=== PATIENT | female | born 1945 | race Caucasian/White ===

== ENCOUNTER 2019-02-28 12:59 | Emergency (ER) | payer MEDICARE ==
[~2019-02-28] VITALS: Ht 162.6 cm; Wt 84.8 kg
[~2019-02-28 12:59] MED LIST: TRIAMTERENE/HC1 EACH PO; Z ALTACE PO; Z.0.VERAPAMIL ER240 PO
--- OUTSIDE RECORDS SUMMARY | 2019-02-28 13:01 | XMS REPORT | Clinical Summary ---
Author Author [place] [facility] Organization [facility] Address Unknown Phone Unavailable Care Team Providers Care Product Marketing Executive Name Role Phone Stephon Tang MD PCP Unavailable Allergies Comments Active Allergy Reactions Severity Noted Date Skin irritation Adhesive Other (See 11/09/2018 Comments) Childhood reaction Sulfa (Sulfonamide Other (See 03/02/2015 Antibiotics) Comments) Medications End Date Status Medication Sig Dispensed Refills Start Date Active b complex vitamins tablet Take 1 tablet 0 by mouth daily. Active calcium carbonate-vitamin Take 1 tablet 0 D3 (OSCAL-D) 500 by mouth 2 mg(1,250mg) -200 unit per (two) times tablet daily with breakfast and dinner. Active glucosamine-chondroitin Take 1 tablet 0 500-400 mg tablet by mouth 3 (three) times daily. Active methylsulfonylmethane Take by 0 (MSM) 1,000 mg Cap mouth. Active multivitamin per tablet Take 1 tablet 0 by mouth daily. Active TiZANidine (ZANAFLEX) 4 Take 4 mg by 0 MG capsule mouth 3 (three) times daily as needed . Active verapamil (VERELAN PM) Take 240 mg 0 240 MG 24 hr capsule by mouth 2 (two) times daily . Active hydroCHLOROthiazide Take 25 mg by 0 (HYDRODIURIL) 25 MG mouth daily. tablet Active rOPINIRole (REQUIP) 0.25 Take 0.25 mg 0 MG tablet by mouth daily. Active ramipril (ALTACE) 5 MG Take 5 mg by 0 capsule mouth daily. 11/09/2018 Discontinued traMADol (ULTRAM) 50 mg Take 50 mg by 0 tablet mouth every 6 (six) hours as needed for Pain. 11/09/2018 Discontinued losartan-hydrochlorothiaz Take 1 tablet 0 maxi (HYZAAR) 50-12.5 mg by mouth per tablet daily. 11/19/2018 Discontinued HYDROcodone-acetaminophen Take 1 tablet 0 (NORCO 5-325) 5-325 mg by mouth per tablet every 6 (six) hours as needed for Pain. 12/04/2018 HYDROcodone-acetaminophen Take 1 tablet 60 tablet 0 (NORCO 10-325) 10-325 mg by mouth 9 per tablet every 4 (four) hours as needed for Pain for up to 15 days. Max Daily Amount: 6 tablets 12/04/2018 aspirin 325 MG EC tablet Take 1 tablet 14 tablet 0 (325 mg 9 total) by mouth daily for 14 days. Active Problems Problem Noted Date Primary osteoarthritis of right knee 11/18/2018 Status post right knee replacement 11/18/2018 Dermatochalasis 01/31/2016 Brow ptosis 01/31/2016 Encounters Care Team Description Date Type Specialty 11/19/2018 Travel Kamryn Diallo MD ARTHROPLASTY,KNEE UNILATERAL 11/18/2018 Surgery Girma Chin MD 11/18/2018 Anesthesia Event Kamryn Diallo MD 11/18/2018 [facility] General Internal Medicine - Encounter 11/20/2018 Resource, Omt Preadmit Phone 11/09/2018 Hospital Pre-Admission Testing Encounter after 02/27/2018 Social History Date Tobacco Use Types Packs/Day Years Used Never Smoker Smokeless Tobacco: Never Used Alcohol Use Drinks/Week oz/Week Comments No Sex Assigned at Date Recorded Not on file Industry Job Start Date Occupation Not on file Not on file Not on file Travel End Travel History Travel Start 11/01/2018 Spring 10/22/2018 Last Filed Vital Signs Time Taken Vital Sign Reading 11/20/2018 11:00 AM CONTRACTS ADMINISTRATOR Blood Pressure 106/57 11/20/2018 11:00 AM CONTRACTS ADMINISTRATOR Pulse 74 11/20/2018 11:00 AM CONTRACTS ADMINISTRATOR Temperature 36.6 C (97.8 F) 11/20/2018 11:00 AM CONTRACTS ADMINISTRATOR Respiratory Rate 17 11/20/2018 11:00 AM CONTRACTS ADMINISTRATOR Oxygen Saturation 98% - Inhaled Oxygen - Concentration 11/18/2018 7:54 AM CONTRACTS ADMINISTRATOR Weight 95.8 kg (211 lb 3.2 oz) 11/18/2018 7:54 AM CONTRACTS ADMINISTRATOR Height 162.6 cm (5' 4") 11/18/2018 7:54 AM CONTRACTS ADMINISTRATOR Body Mass Index 36.25 Plan of Treatment Not on file Implants Device Identifier Shelf Expiration Date Model / Serial / Lot Implanted Type Area Manufactur er 01/18/2021 6191-1-001 / / [id number] Cement Bone [employer]urg Smplx P Full Cement/Fredrick Right: Knee JANIE:ST 6191-1-001 - [id number] ler/Adhesi CALDERON Implanted: Qty: 2 on 11/18/2018 by Kamryn Forbes MD 12/03/2027 [id number] / / [id number] Comp Fem Cr Intlok Vangrd 60 R Joints Right: Knee BIOMET [id number] - [id number] Implanted: Qty: 1 on 11/18/2018 by Kamryn Diallo MD 07/26/2028 [id number] / / [id number] Ty Tib Fin Biomet 71mm [id number] - Joints Right: Knee BIOMET [id number] Implanted: Qty: 1 on 11/18/2018 by Kamryn Diallo MD 10/08/2023 [id number] / / [id number] Patella Symm [id number] - Joints Right: Knee BIOMET [id number] Implanted: Qty: 1 on 11/18/2018 by Kamryn Diallo MD 09/23/2023 [id number] / / [id number] Bear Van Std [id number] - Joints Right: Knee BIOMET [id number] Implanted: Qty: 1 on 11/18/2018 by Kamryn Diallo MD Procedures Comments Procedure Name Priority Date/Time Associated Diagnosis HEMOGLOBIN AND HEMATOCRIT Routine 11/20/2018 5:21 AM CONTRACTS ADMINISTRATOR BASIC METABOLIC PANEL (7) Routine 11/20/2018 5:21 AM CONTRACTS ADMINISTRATOR TRANSFUSION SERVICE 11/19/2018 REPORT - SCAN 6:01 PM CONTRACTS ADMINISTRATOR HEMOGLOBIN AND HEMATOCRIT Routine 11/19/2018 3:22 AM CONTRACTS ADMINISTRATOR BASIC METABOLIC PANEL (7) Routine 11/19/2018 3:22 AM CONTRACTS ADMINISTRATOR ARTHROPLASTY,KNEE 11/18/2018 Primary osteoarthritis of UNILATERAL 9:31 AM CONTRACTS ADMINISTRATOR right knee Special Needs (BIOMET, SPINAL/EPI DURAL WITH ADDUCTOR CANAL BLOCK) TISSUE EXAM AP Routine 11/18/2018 9:16 AM CONTRACTS ADMINISTRATOR MA AN PERINEURAL CATH - Routine 11/18/2018 NO CHARGE 8:25 AM CONTRACTS ADMINISTRATOR ANESTHESIA SPINAL BLOCK Routine 11/18/2018 8:23 AM CONTRACTS ADMINISTRATOR TYPE AND SCREEN, Routine 11/18/2018 AUTOMATED 7:48 AM CONTRACTS ADMINISTRATOR after 02/27/2018 Results * Hemoglobin and hematocrit (11/20/2018 5:21 AM CONTRACTS ADMINISTRATOR) Only the most recent of 2 results within the time period is included. Hemoglobin 11.3 11.2 - 15.7 GM/DL [facility] Hematocrit 35.8 34.1 - 44.9 % [facility] Specimen Blood Performing Organization Address City/[facility]/Zipcode Phone Number [facility] [address] [place] [address] [place] * Basic metabolic panel (11/20/2018 5:21 AM CONTRACTS ADMINISTRATOR) Only the most recent of 2 results within the time period is included. Sodium 138 136 - 145 meq/L [facility] Potassium 3.5 3.5 - 5.1 meq/L [facility] Chloride 107 98 - 107 meq/L [facility] CO2 25 22 - 29 meq/L [facility] BUN 21 7 - 21 mg/dL [facility] Creatinine 0.80 0.57 - 1.25 mg/dL [facility] Glucose 103 70 - 105 mg/dL [facility] Calcium 8.3 (L) 8.4 - 10.2 mg/dL [facility] EGFR 70Comment: ESTIMATED GFR IS mL/min/1.73 sq m [facility] NOT ACCURATE CREATININE [facility] CLEARANCE IN PREDICTING GLOMERULAR FILTRATION RATE. ESTIMATED GFR IS NOT APPLICABLE FOR DIALYSIS PATIENTS. Specimen Blood Performing Organization Address City/[facility]/Zipcode Phone Number [facility] [address] [place] [address] [facility] * TRANSFUSION SERVICE REPORT - SCAN (11/19/2018 6:01 PM CONTRACTS ADMINISTRATOR) Narrative Performed At * Tissue Exam (11/18/2018 9:16 AM CONTRACTS ADMINISTRATOR) Case Report Surgical Pathology [facility] Report [facility] Case: [id number] Authorizing Provider:Kamryn Diallo, Collected: 11/18/2018 0916 Ordering Location: [facility] PERIOPERAT[facility] Received: 11/18/2018 1029 SERVICES Pathologist: Carlee Harris MD Specimen:Condyle,Right Knee DIAGNOSIS RIGHT KNEE BONE, EXCISION: [facility] - PRIMARY [facility] OSTEOARTHRITIS/DEGENERATIVE JOINT DISEASE - OSTEOPOROSIS - REACTIVE SYNOVIUM - OSTEOCARTILAGINOUS LOOSE BODY, 6 MM MO/pl Signing Pathologist Direct Phone Line: [phone] CPT Code(s) 52921; 86079 [facility] CLINICAL HISTORY Primary osteoarthritis right [facility] knee [facility] SPECIMEN SOURCE Right knee condyle [facility] GROSS DESCRIPTION The specimen is received in a [facility] fluidless container labeled [facility] with patient information and labeled "right knee condyle" and consists of multiple fragments of leyva knee bone and soft tissue measuring 7 x 6 x 2.5 cm in aggregate. Section code: A1 and A2, bone submitted for decalcification; A3, soft tissue and bone submitted for decalcification. CG/pl MICROSCOPIC DESCRIPTION The right sample shows [facility] eburnated bone and adjacent [facility] degenerated cartilage with chondrocyte clones and fibrillation. Osteophytes are present. The marrow is focally hematopoietic and the bone, osteoporotic. There is reactive synovium and an osteocartilaginous loose body, up to 5 mm, present in the synovial elements. Atypia or inflammation is not noted in any of the sections studied. Specimen Tissue - Condyle,Right Knee Performing Organization Address City/[facility]/Zipcode Phone Number [facility] [address] [place] [address] [facility] * ANESTHESIA PERIPHERAL BLOCK (11/18/2018 8:25 AM CONTRACTS ADMINISTRATOR) Narrative Performed At Girma Chin MD 11/18/20188:26 AM Peripheral Block Patient location during procedure: pre-procedure Start time: 11/18/2018 8:21 AM End time: 11/18/2018 8:26 AM Procedure Indication: procedure for pain, at surgeon's request and post-op pain management Preanesthetic Checklist Completed: patient identified, pre-op evaluation, timeout performed, IV checked, risks and benefits discussed, monitors and equipment checked, anesthesia consent given, prep site dry prior to draping and maximum sterile barriers were used: cap, mask, sterile gown, sterile gloves, and large sterile sheet Staffing Anesthesiologist: Girma Chin MD Performed: personally Prep Prep: chlorhexidine Procedures: sterile gloves, surgical mask, surgical hat, sterile technique and prep and sterile drape applied Peripheral Nerve Block Patient position: supine Patient monitoring: EKG, HR, BP and SpO2 Laterality: right Block type: adductor canal Injection technique: catheter ultrasound guided - in plane, prescan was completed prior to procedure and needle tip was visualized throughout the entire procedure ultrasound image saved Block Dose: ropivicaine and catheter Infiltration strength: 0.5 % Dose: 25 mL Needle Needle type: pajunk. Needle gauge: 18 G Needle length: 75mm. Needle Localization:anatomical landmarks and US guided Catheter type: open end Catheter size: 20 G Hydrodissection? yesCatheter tunneled Dressing: Occlusive dressing applied in sterile fashion and Dermabond applied at the catheter insertion site Assessment Injection assessment: incremental injection and negative aspiration for heme LOC: Sedated with meaningful contact supplemental oxygen used.no evidence of intravascular injection and no heart rate changeno paresthesia patient had no immediate complications and patient tolerated the procedure well Additional Notes Patient tolerated well.No pain on injection or throughout procedure. Procedure Note Girma Chin MD - 11/18/2018 8:25 AM CONTRACTS ADMINISTRATOR Peripheral Block Patient location during procedure: pre-procedure Start time: 11/18/2018 8:21 AM End time: 11/18/2018 8:26 AM Procedure Indication: procedure for pain, at surgeon's request and post-op pain management Preanesthetic Checklist Completed: patient identified, pre-op evaluation, timeout performed, IV checked, risks and benefits discussed, monitors and equipment checked, anesthesia consent given, prep site dry prior to draping and maximum sterile barriers were used: cap, mask, sterile gown, sterile gloves, and large sterile sheet Staffing Anesthesiologist: Girma Chin MD Performed: personally Prep Prep: chlorhexidine Procedures: sterile gloves, surgical mask, surgical hat, sterile technique and prep and sterile drape applied Peripheral Nerve Block Patient position: supine Patient monitoring: EKG, HR, BP and SpO2 Laterality: right Block type: adductor canal Injection technique: catheter ultrasound guided - in plane, prescan was completed prior to procedure and needle tip was visualized throughout the entire procedure ultrasound image saved Block Dose: ropivicaine and catheter Infiltration strength: 0.5 % Dose: 25 mL Needle Needle type: pajunk. Needle gauge: 18 G Needle length: 75mm. Needle Localization: anatomical landmarks and US guided Catheter type: open end Catheter size: 20 G Hydrodissection? yesCatheter tunneled Dressing: Occlusive dressing applied in sterile fashion and Dermabond applied at the catheter insertion site Assessment Injection assessment: incremental injection and negative aspiration for heme LOC: Sedated with meaningful contact supplemental oxygen used.no evidence of intravascular injection and no heart rate changeno paresthesia patient had no immediate complications and patient tolerated the procedure well Additional Notes Patient tolerated well. No pain on injection or throughout procedure. * ANESTHESIA SPINAL BLOCK (11/18/2018 8:23 AM CONTRACTS ADMINISTRATOR) Narrative Performed At Girma Chin MD 11/18/20188:24 AM Spinal Block Patient location during procedure: pre-procedure Start time: 11/18/2018 8:17 AM End time: 11/18/2018 8:20 AM Procedure Indication: at surgeon's request and primary anesthetic Staffing Anesthesiologist: Girma Chin MD Performed: personally Preanesthetic Checklist Completed: patient identified, pre-op evaluation, timeout performed, IV checked, risks and benefits discussed, monitors and equipment checked, anesthesia consent given, prep site dry prior to draping and maximum sterile barriers were used: cap, mask, sterile gown, sterile gloves, and large sterile sheet Prep Prep: chlorhexidine Procedures: sterile gloves, surgical mask, surgical hat, sterile technique and prep and sterile drape applied Spinal Block Patient position: sitting Patient monitoring: EKG, HR, BP and SpO2 Approach: midlineNo pictures available Level:L3-4 Injection technique: single-shot landmark technique and landmark technique Needle Needle type: cori. Needle gauge: 25 G Assessment Sensory level: T10 Events: cerebrospinal fluid patient tolerated the procedure well and patient had no immediate complications Additional Notes Patient tolerated well.No pain on injection or throughout procedure. Procedure Note Girma Chin MD - 11/18/2018 8:23 AM CONTRACTS ADMINISTRATOR Spinal Block Patient location during procedure: pre-procedure Start time: 11/18/2018 8:17 AM End time: 11/18/2018 8:20 AM Procedure Indication: at surgeon's request and primary anesthetic Staffing Anesthesiologist: Girma Chin MD Performed: personally Preanesthetic Checklist Completed: patient identified, pre-op evaluation, timeout performed, IV checked, risks and benefits discussed, monitors and equipment checked, anesthesia consent given, prep site dry prior to draping and maximum sterile barriers were used: cap, mask, sterile gown, sterile gloves, and large sterile sheet Prep Prep: chlorhexidine Procedures: sterile gloves, surgical mask, surgical hat, sterile technique and prep and sterile drape applied Spinal Block Patient position: sitting Patient monitoring: EKG, HR, BP and SpO2 Approach: midlineNo pictures available Level: L3-4 Injection technique: single-shot landmark technique and landmark technique Needle Needle type: cori. Needle gauge: 25 G Assessment Sensory level: T10 Events: cerebrospinal fluid patient tolerated the procedure well and patient had no immediate complications Additional Notes Patient tolerated well. No pain on injection or throughout procedure. * Type and screen, automated (11/18/2018 7:48 AM CONTRACTS ADMINISTRATOR) ABO/RH AUTOMATED (BEAKER) O POSITIVE [facility] Ab Scrn NEGATIVE [facility] Specimen Blood Performing Organization Address City/State/Zipcode Phone Number [facility] [address] [place] [address] [place] after 02/27/2018 Insurance Payer Benefit Subscriber ID Type Phone Address Plan / Group [facility] xxxxxxxxxxx MEDICARE ADV Advance Directives Patient has advance care planning documents, and code status on file. For more i nformation, please contact: [address] [address] Date Inactivated Comments Code Status Date Activated 11/20/2018 5:31 PM Full Code 11/18/2018 7:37 AM This code status was determined by: Patient 01/31/2016 11:50 PM Full Code 01/31/2016 10:08 AM This code status was determined by: Patient
--- OUTSIDE RECORDS SUMMARY | 2019-02-28 13:01 | XMS REPORT ---
Author Author [facility] Address Unknown Phone Unavailable Care Team Providers Care Slat Grader Name Role Phone SHANELLE MUNGUIA Unavailable Unavailable Problems This patient has no known problems. Allergies, Adverse Reactions, Alerts This patient has no known allergies or adverse reactions. Medications This patient has no known medications. Results Test Description Test Time Test Comments Text Results Atomic Results Result Comments TISSUE EXAM 2018-11-23 15:23:00 Surgical Pathology Report Case: [id number] Authorizing Provider: Kamryn Munguia, Collected: 11/18/2018 0916 Ordering Location: [facility] PERIOPERATIVE Received: 11/18/2018 1029 SERVICES Pathologist: Carlee Harris MD Specimen: Ramakrishna mara,Right Knee RIGHT KNEE BONE, EXCISION: - PRIMARY OSTEOARTHRITIS/DEGENERATIVE JOINT DISEASE - OSTEOPOROSIS - REACTIVE SYNOVIUM - OSTEOCARTILAGINOUS LOOSE BODY, 6 MMMO/pl Signing Pathologist Direct Phone Line: [phone] signed by Carlee Harris MD on 11/23/2018 at 3:23 [id number]; [id number] osteoarthritis right kneeRight knee condyleThe specimen is received in a fluidless container labeled with patient information and labeled "right knee condyle" and consists of multiple fragments of leyva knee bone and soft tissue measuring 7 x 6 x 2.5 cm in aggregate. Section code: A1 and A2, bone submitted for decalcification; A3, soft tissue and bone submitted for decalcification. CG/pl The right sample shows eburnated bone and adjacent degenerated cartilage with chondrocyte clones and fibrillation. Osteophytes are present. The marrow is focally hematopoietic and the bone, osteoporotic. There is reactive synovium and an osteocartilaginous loose body, up to 5 mm, present in the synovial elements. Atypia or inflammation is not noted in any of the sections studied. BASIC METABOLIC PANEL 2018-11-20 06:51:00 SODIUM (BEAKER) (test mwcj=820) 138 meq/L 136-145 POTASSIUM (BEAKER) (test dpim=537) 3.5 meq/L 3.5-5.1 CHLORIDE (BEAKER) (test fxiv=815) 107 meq/L 98-107 CO2 (BEAKER) (test yeye=745) 25 meq/L 22-29 BLOOD UREA NITROGEN (BEAKER) (test lsrf=883) 21 mg/dL 7-21 CREATININE (BEAKER) (test ktyx=381) 0.80 mg/dL 0.57-1.25 GLUCOSE RANDOM (BEAKER) (test jzts=317) 103 mg/dL 70-105 CALCIUM (BEAKER) (test uwpc=357) 8.3 mg/dL 8.4-10.2 EGFR (BEAKER) (test olxu=4430) 70 mL/min/1.73 sq m ESTIMATED GFR IS NOT ACCURATE CREATININE CLEARANCE IN PREDICTING GLOMERULAR FILTRATION RATE. ESTIMATED GFR IS NOT APPLICABLE FOR DIALYSIS PATIENTS. HEMOGLOBIN AND [id number] 05:42:00* Test Item Value Reference Range Comments HEMOGLOBIN (BEAKER) (test brqd=276) 11.3 GM/DL 11.2-15.7 HEMATOCRIT (BEAKER) (test ufeo=051) 35.8 % 34.1-44.9 BASIC METABOLIC [id number] 06:31:00* Test Item Value Reference Range Comments SODIUM (BEAKER) (test yadr=640) 137 meq/L 136-145 POTASSIUM (BEAKER) (test slru=963) 3.3 meq/L 3.5-5.1 CHLORIDE (BEAKER) (test edzt=302) 105 meq/L 98-107 CO2 (BEAKER) (test bvjs=489) 25 meq/L 22-29 BLOOD UREA NITROGEN (BEAKER) (test yrzz=067) 16 mg/dL 7-21 CREATININE (BEAKER) (test rbqt=270) 0.73 mg/dL 0.57-1.25 GLUCOSE RANDOM (BEAKER) (test pocd=084) 132 mg/dL 70-105 CALCIUM (BEAKER) (test sgvq=575) 8.6 mg/dL 8.4-10.2 EGFR (BEAKER) (test qcrg=6544) 78 mL/min/1.73 sq m ESTIMATED GFR IS NOT ACCURATE CREATININE CLEARANCE IN PREDICTING GLOMERULAR FILTRATION RATE. ESTIMATED GFR IS NOT APPLICABLE FOR DIALYSIS PATIENTS. HEMOGLOBIN AND [id number] 05:00:00* Test Item Value Reference Range Comments HEMOGLOBIN (BEAKER) (test ijdh=224) 11.8 GM/DL 11.2-15.7 HEMATOCRIT (BEAKER) (test nxfn=674) 36.6 % 34.1-44.9
== END 2019-02-28 17:03 | disposition home or self-care (01) ==
LOC: ER 12:59
DX: S91.202A Unspecified open wound of left great toe with damage to nail, initial encounter (principal); W22.8XXA Striking against or struck by other objects, initial encounter; Y93.89 Activity, other specified; Y92.014 Private driveway to single-family (private) house as the place of occurrence of the external cause; I10 Essential (primary) hypertension; Z82.49 Family history of ischemic heart disease and other diseases of the circulatory system
CPT/HCPCS: 99284

== ENCOUNTER 2022-03-02 14:08 | Inpatient (IN) | payer MEDICARE ==
[~2022-03-02] VITALS: Ht 162.6 cm; Wt 90.7 kg
[2022-03-02] MEDS ORDERED: ONDANSETRON HCL INJ 2MG/ML 2ML 2 MG/ML VIAL IV STA (15:39)
[2022-03-02] MEDS ORDERED: Morphine 2mg Syringe 2 MG/ML SYR IV ONE (15:45)
[2022-03-02] MEDS ORDERED: VITAMIN C500 M6 (16:23)
[2022-03-02] MEDS ORDERED: SPIRONOLACTONE25 MG PO (16:23)
[2022-03-02] MEDS ORDERED: VITAMIN E100 UNI3 (16:23)
[2022-03-02] MEDS ORDERED: TIZANIDINE HCL4 MG PO (16:23)
[2022-03-02] MEDS ORDERED: MULTI-VITAMIN1 EACH PO (16:23)
[2022-03-02] MEDS ORDERED: ROPINIROLE HCL1 MG PO (16:23)
[2022-03-02] MEDS ORDERED: HYDRALAZINE HCL10 MG PO (16:23)
[2022-03-02] MEDS ORDERED: CALTRATE 600 W1 EACH (16:23)
[2022-03-02] MEDS ORDERED: ONDANSETRON HCL INJ 2MG/ML 2ML 2 MG/ML VIAL ONE ×2 (16:53→17:40)
[2022-03-02] MEDS ORDERED: Morphine 4mg INJECTION 4 MG/ML INJ ONE (16:53)
[2022-03-02] MEDS ORDERED: CEFTRIAXONE 1 GM VIAL IV ONE (18:00)
[2022-03-02] MEDS ORDERED: ONDANSETRON HCL INJ 2MG/ML 2ML 2 MG/ML VIAL IV PRN (18:00)
[2022-03-02] MEDS ORDERED: SODIUM CHLORIDE 0.9% 1000ML 1,000 ML IV SCH (18:00)
[2022-03-02] MEDS ORDERED: CEFTRIAXONE 1 GM VIAL ONE (18:37)
[2022-03-02] MEDS: SODIUM CHLORIDE 0.9% 1000ML 1,000 ML IV SCH (19:50)
[2022-03-02] MEDS ORDERED: SODIUM CHLORIDE 0.9% 1000ML 1,000 ML ONE (20:43)
[2022-03-02 20:50] VITALS: BP 132/81
[2022-03-02] MEDS ORDERED: PROMETHAZINE 12.5MG/ NACL 0.9% 12.5 MG/50 ML BAG IV PRN (22:15)
[2022-03-02] MEDS: ACETAMINOPHEN 1000 MG/100 ML IV PRN (23:02)
[2022-03-03] VITALS (10 sets, daily range): BP systolic 113–132; BP diastolic 67–81
[2022-03-03] MEDS: SODIUM CHLORIDE 0.9% 1000ML 1,000 ML IV SCH (01:23)
[2022-03-03] MEDS: ACETAMINOPHEN 1000 MG/100 ML IV PRN ×2 (06:43→12:40)
[2022-03-03 08:10] LABS: BASOPHILS % 0.5 % (0.0-1.0); EOSINOPHILS # (AUTO) 0.1 (0.0-0.4); EOSINOPHILS % 0.8 % (0.0-6.0); HEMATOCRIT 42.7 % (34.2-44.1); HEMOGLOBIN 13.5 g/dL (12.0-16.0); LYMPHOCYTES # (AUTO) 1.2 (1.0-3.2); LYMPHOCYTES % 18.4 % (18.0-39.1); MEAN CORPUSCULAR HEMOGLOBIN 30.9 pg (28-32); MEAN CORPUSCULAR HGB CONC 31.6 g/dL (31-35); MEAN CORPUSCULAR VOLUME 97.7 fL (81-99); MONOCYTES # (AUTO) 0.9 (0.2-0.8); MONOCYTES % 13.1 % (4.4-11.3); NEUTROPHILS # (AUTO) 4.4 (2.1-6.9); NEUTROPHILS % 66.7 % (38.7-80.0); PLATELET COUNT 231 x10e3/uL (140-360); RED BLOOD COUNT 4.37 x10e6/uL (3.6-5.1); RED CELL DISTRIBUTION WIDTH 12.4 % (11.7-14.4)
[2022-03-03] MEDS ORDERED: Morphine 2mg Syringe 2 MG/ML SYR IV PRN (10:15)
[2022-03-03] MEDS: LACTATED RINGER'S 1,000 ML INJ SCH (10:49)
[2022-03-03] MEDS: FAMOTIDINE 20 MG/2 ML VIAL IV SCH ×2 (10:50→20:36)
[2022-03-03] MEDS ORDERED: ROPINIROLE HCL 1 MG TAB PO SCH (16:30)
[2022-03-03] MEDS: ROPINIROLE HCL 1 MG TAB PO SCH (23:15)
[2022-03-04] VITALS (8 sets, daily range): BP systolic 128–155; BP diastolic 64–86
[2022-03-04] MEDS: LACTATED RINGER'S 1,000 ML INJ SCH ×2 (00:06→14:14)
[2022-03-04 07:01] LABS: CALCIUM 8.5 mg/dL (8.4-10.2); CREATININE, SERUM 0.86 mg/dL (0.57-1.11); MAGNESIUM 1.9 MG/DL (1.3-2.1)
[2022-03-04] MEDS: ROPINIROLE HCL 0.25 MG TAB PO SCH ×2 (09:05→14:14)
[2022-03-04] MEDS: FAMOTIDINE 20 MG/2 ML VIAL IV SCH (09:07)
[2022-03-04] MEDS: ROPINIROLE HCL 1 MG TAB PO SCH (20:12)
[2022-03-04] MEDS: RAMIPRIL 5 MG CAP PO SCH (20:12)
[2022-03-05] VITALS: BP 125/67
[2022-03-05 04:00] VITALS: BP 126/66
[2022-03-05] MEDS ORDERED: ACETAMINOPHEN 325 MG TAB PO PRN (07:00)
[2022-03-05] MEDS: LACTATED RINGER'S 1,000 ML INJ SCH (07:10)
[2022-03-05 08:06] VITALS: BP 138/72
[2022-03-05] MEDS: ROPINIROLE HCL 0.25 MG TAB PO SCH ×2 (08:10→13:55)
[2022-03-05] MEDS: RAMIPRIL 5 MG CAP PO SCH (08:10)
[2022-03-05 08:13] VITALS: BP 138/72
[2022-03-05 12:03] VITALS: BP 107/52
== END 2022-03-05 15:01 | disposition home or self-care (01) | DRG 390 ==
LOC: FSED 14:16 → ERHOLD 19:31 → MED/SURG3 20:43
PROVIDERS: ADMIT Internal Medicine; ATTEND Internal Medicine
DX: K56.600 Partial intestinal obstruction, unspecified as to cause (principal); Z88.2 Allergy status to sulfonamides; G25.81 Restless legs syndrome; I10 Essential (primary) hypertension; Z90.49 Acquired absence of other specified parts of digestive tract; Z90.710 Acquired absence of both cervix and uterus; Z20.822 Contact with and (suspected) exposure to COVID-19; Z79.899 Other long term (current) drug therapy
CPT/HCPCS: 36415; 74018; 74019; 74176; 80048; 80053; 80076; 81003; 83735; 85025; 87040; 96374; 96375; 96376; 99284; J0696; J2270; J2405; J7030; J7121